=== PATIENT | female | born 1945 | race Caucasian/White ===

== ENCOUNTER 2021-10-24 16:40 | Outpatient (CLI) | payer MEDICARE, SELFPAY ==
[2021-10-24 19:44] LABS: Albumin* 4.6 g/dL (3.3-5.0)
[2021-10-24 19:45] LABS: Chloride* 104 mmol/L (96-114); Potassium* 4.4 mmol/L (3.6-5.1); Sodium* 139 mmol/L (135-149)
[2021-10-24 19:47] LABS: Aspartate Amino Transferase* 35 U/L (12-35); Bilirubin Total* 0.2 mg/dL (0.1-1.5); Carbon Dioxide* 24 mmol/L (20-32); Creatinine* 0.7 mg/dL (0.5-1.5); Estimated Glomerular Filt Rate 91 ml/min; Total Protein* 7.4 g/dL (6.0-8.3)
[2021-10-24 19:48] LABS: Alanine Aminotransferase* 34 U/L (4-35); Alkaline Phosphatase* 73 U/L (40-150); Blood Urea Nitrogen* 28 mg/dL (7-30); Calcium* 9.9 mg/dL (8.4-10.6); Glucose* 111 mg/dL (60-115)
== END 2021-10-24 16:41 | disposition home or self-care (01) ==
LOC: NFLDREF 16:41
PROVIDERS: PCP Internal Medicine; Visit Provider Internal Medicine
DX: M31.0 Hypersensitivity angiitis (principal)
CPT/HCPCS: 80053

== ENCOUNTER 2021-12-03 10:40 | Outpatient (CLI) | payer MEDICARE, SELFPAY ==
--- OUTSIDE RECORDS SUMMARY | 2021-12-04 15:09 | XMS_ITS | Clinical Summary ---
:1945 Author Organization [employer] [facility] [place] [address] Care Team Providers Name Role Phone Alanna Meadows MD Primary Care Provider Allergies Active Allergy Reactions Severity Noted Date Comments Erythromycin Hives 06/17/2006 Cephalexin Rash 06/17/2006 Penicillins Edema 06/17/2006 diffuse swellin g. Severe but not anaphylaxsis Medications Medication Sig Dispensed Refills Start Date End Date Status MULTIPLE VITAMIN TAB take 1 tablet by 0 06/17/2006 Active oral route once daily with food FIBERCON 625 MG TAB one daily 0 06/17/2006 Active VITAMIN D 400 UNIT CAP one daily 0 12/30/2007 Active ZOVIRAX 5 % OINTMENT apply to the 1 tube 0 05/05/2008 Active affected area(s) by topical route every 3 hours 6 times per day ACYCLOVIR 400 MG TAB TAKE ONE TABLET 15 Tab 1 12/18/2008 Active THREE TIMES DAILY FOR 5 DAYS loratadine 10 mg cap Take by mouth. 0 11/03/2019 Active levothyroxine Take 1.5 Tablets 30 Tablet 0 10/13/2021 Active (SYNTHROID) 50 mcg (75 mcg) by mouth tabletIndications: once daily. Elevated TSH Active Problems Problem Noted Date healthcare maintenance 12/30/2007 Overview: LMP menopause Last Pap 12/23/06 Result WNL Last Mammo 01/10/07 Last Colonoscopy 10/03/07 Last DEXA 2004 - ordered 2007 Last Td 12/23/06 Irritable bowel syndrome 06/17/2006 Encounters Date Type Specialty Care Team Description 10/15/2021 Telephone Samantha Campbell PA Lab 10/13/2021 Office Visit Raquel Rodriguez NP UTI 10/13/2021 Travel from Last 3 Months Immunizations Name Administration Dates Next Due Hepatitis A (Adult) 07/09/1997 Hepatitis B (Adult) 01/14/1998, 05/03/1997, 03/31/1997 Influenza, IIV3 (Age >=3 years) 12/16/2007, 12/23/2006 Pneumococcal Poly,23-Valent (Pneumovax) 05/28/2002, 07/09/18 98 Tdap 12/23/2006 Zoster (Zostavax-ZVL, live) 04/16/2007 Family History Medical History Relation Name Comments Heart Disease Father Hyperlipidemia Father Hypertension Father Allergies Mother Asthma Mother Heart Disease Mother stent Hyperlipidemia Mother Other Mother Kidney disease Cancer-breast Paternal Aunt Relation Name Status Comments Father Pulmonary Fibros is Mother Paternal Aunt Social History Tobacco Use Types Packs/Day Years Used Date Never Smoker Smokeless Tobacco: Never Used Alcohol Use Standard Drinks/Week Comments Yes 8.3 (1 standard drink = 0.6 oz pure alco hol) wine but not daily Alcohol Habits Answer Date Recorded How often do you have a drink containing alcohol? Not asked How many drinks containing alcohol do you have on a Not aske d typical day when you are drinking? How often do you have six or more drinks on one Not asked occasion? Comment: wine but not daily 12/30/2007 Sex Assigned at Date Recorded Not on file Obstetrics History Para Term AB IAB SAB Ectopic Multiple Living Live Births 6 5 5 0 1 0 1 0 0 5 Date Outcome GA Total Labor/2nd/3rd Weight Sex Delivery Anes PTL Rohini A 1 A5 Name Clin Labor SAB Term Term Term Term Term Last Filed Vital Signs Vital Sign Reading Time Taken Comments Blood Pressure 162/88 10/13/2021 12:37 PM CDT Pulse 88 10/13/2021 12:37 PM CDT Temperature 36.5 ??C (97.7 ??F) 10/13/2021 12:37 PM CDT Respiratory Rate 16 10/13/2021 12:37 PM CDT Oxygen Saturation 99% 10/13/2021 12:37 PM CDT Inhaled Oxygen Concentration - - Weight 66.2 kg (146 lb) 10/13/2021 12:37 PM CDT Height 163.8 cm (5' 4.5) 12/30/2007 9:22 AM CDT Body Mass Index - - Plan of Treatment Health Maintenance Due Date Last Done Comments Depression screening for age 12+ 1959 BMI (ht and wt on same day) for 1965 age 18+ Hepatitis C screening for age 0204/06/1965 18-79 Pneumococcal series for age 65+ (2 05/29/2003 05/28/2002, 0 07/09/1997 - PCV) Zoster (shingles) series for age 0406/11/2007 04/16/2007 50+ (2 of 3) Mammogram for age 45-75 01/19/2009 01/20/2008, 01/10/2007 DEXA/DXA scan for age 65+ 2012 01/20/2008 Medicare Wellness for age 65+ 2012 Lipids for age 45-75 04/23/2013 04/23/2008, 12/30/2007, 08/27/2005 Tetanus booster 12/23/2016 12/23/2006 Colonoscopy through age 75 10/02/2017 10/03/2007 Influenza for age 65+ 11/02/2021 12/16/2007, 12/23/2006 Tdap Completed 12/23/2006 COVID-19 vaccine series Completed 06/06/2021, 12/15/2020, 05/26/2020, Additional history exists Procedures Procedure Name Priority Date/Time Associated Comments Diagnosis URINE CULTURE Add On 10/13/2021 12:28 Dysuria Results fo r this PM CDT procedure are i n the results section. URINALYSIS STAT 10/13/2021 12:28 Dysuria Results for this MICROSCOPIC PM CDT procedure are i n the results section. UA W/ SEDIMENT EXAM STAT 10/13/2021 12:28 Dysuria Resu lts for this REFLEXED PER CRITERIA PM CDT proced ure are in the results section. from Last 3 Months Results (ABNORMAL) URINALYSIS MICROSCOPIC (10/13/2021 12:28 PM CDT) [facility] gist Method Time Signature RBC None Seen 0-2, None 10/13/2021 [place] Seen /HPF 1:04 PM [facility] WBC 11-25 (A) 0-2, 3-5, 10/13/2021 [place] None Seen 1:04 PM [facility] /HPF LABORATORY BACTERIA Few None 10/13/2021 [place] Seen, 1:04 PM [facility] Rare, Few LABORATORY Bacteria/ HPF EPITHELIAL Few None 10/13/2021 [place] Seen, Few 1:04 PM T [facility] Epi/HPF LABORATORY Mucus Present 10/13[facility]2021 [facility]:04 PM T [facility] WHITE CELL Present (A) (none) 10/13/2021 [place] 1:04 PM T [facility] Specimen Anatomical Collection Method Collection Time Receive d Time (Source) Location / / Volume Laterality Urine URINE SPECIMEN / Non-Blood / 10/13/2021 12:28 022 Unknown Unknown PM CDT 12:44 PM CDT Raquel Rodriguez NP URINE Performing Organization Address City/State/ZIP Code Phon e Number [facility] [address] [place] [address] (ABNORMAL) URINE CULTURE (10/13/2021 12:28 PM CDT) [facility] Method Time Signature CULTURE RESULT (A) 10/15/2021 [facility] 6:35 AM CDT LABORATORY-[facility] TRAL LABORATORY CULTURE 50,000-100,000 10/15/2021 [facility] CFU/mL 6:35 AM CDT LABORATORY-[facility] Escherichia coli TRAL LABORATORY CULTURE <10,000 CFU/mL 10/15/2021 [facility] Multiple 6:35 AM CDT LABORATORY-[facility] organisms TRAL probable LABORATORY contaminants Specimen Anatomical Collection Method Collection Time Receive d Time (Source) Location / / Volume Laterality Urine URINE SPECIMEN / Non-Blood / 10/13/2021 12:28 022 Unknown Unknown PM CDT 12:44 PM CDT Organism Antibiotic Method Susceptibility Escherichia coli TRIMETHOPRIM/SULF <=1/19: S Escherichia coli AMPICILLIN 8: S Escherichia coli CEFAZOLIN-UC <=4: S Comment: Cefazolin-UC interp retations are for therapy of uncomplicated UTIs due to E.coli, K.pneumoniae, or P.m irablis. Escherichia coli GENTAMICIN <=1: S Escherichia coli CEFTRIAXONE <=1: S Escherichia coli CEFTAZIDIME <=1: S Escherichia coli LEVOFLOXACIN <=0.12: S Escherichia coli CIPROFLOXACIN <=0.25: S Escherichia coli PIPERACILLIN/TAZO <=4: S Escherichia coli AMPICILLIN/SULBACTAM 4: S Escherichia coli CEFEPIME <=1: S Escherichia coli TOBRAMYCIN <=1: S Escherichia coli MEROPENEM <=0.25: S Escherichia coli NITROFURANTOIN <=16: S Raquel Rodriguez NP MICROBIOLOGY Performing Organization Address City/State/ZIP Code Phon e Number [facility] [address] [place] [address] LABORATORY-[facility]EN[facility] 2000 LABORATORY (ABNORMAL) UA W/ SEDIMENT EXAM REFLEXED PER CRITERIA (UA w/ reflex micro if positive) [19373.2] (10/13/2021 12:28 PM CDT) [facility] Method Time Signature COLOR Yellow Yellow Color 10/13/2021 [place] 12:59 PM MEDICAL CDT CENTER LAB[facility] CLARITY Clear Clear 10/13/2021 [place] Clarity 12:59 PM MEDICAL CDT CENTER LAB[facility]ORY SPECIFIC <=1.005 (A) 1.010, 10/13/2021 [place] GRAVITY,URINE 1.015, 12:59 PM MEDICAL 1.020, 1.025 CDT CENTER LABORATORY PH,URINE 5.5 6.0, 7.0, 10/13/2021 [place] 8.0, 5.5, 12:59 PM MEDICAL 6.5, 7.5, CDT CENTER 8.5 LABORATORY UROBILINOGEN, Normal Normal EU/dl 10/13/2021 [place] QUALITATIVE 12:59 PM [facility] PROTEIN, Negative Negative 10/13/2021 [place] URINE mg/dL 12:59 PM [facility] GLUCOSE, Negative Negative 10/13/2021 [place] URINE mg/dL 12:59 PM [facility] KETONES,URINE Negative Negative 10/13/2021 [place] mg/dL 12:59 PM MEDICAL CDT CENTER LABOR[facility]ORY BILIRUBIN,URI Negative Negative 10/13/2021 [place] NE 12:59 PM MEDICAL CDT CENTER LAB[facility] OCCULT Negative Negative 10/13/2021 [place] BLOOD,URINE 12:59 PM [facility]T [facility] LAB[facility] NITRITE Negative Negative 10/13/2021 [place] 12:59 PM MEDICAL [facility]T CENTER LABOR[facility]ORY LEUKOCYTE Moderate (A) Negative 10/13/2021 [place] ESTERASE 12:59 PM [facility] CDT CENTER LABORATORY Specimen Anatomical Collection Method Collection Time Receive d Time (Source) Location / / Volume Laterality Urine URINE SPECIMEN / Non-Blood / 10/13/2021 12:28 022 Unknown Unknown PM CDT 12:44 PM CDT Raquel Rodriguez NP URINE Performing Organization Address City/State/ZIP Code Phon e Number [facility] [address] [place] [address] from Last 3 Months Insurance Payer Benefit Plan / Subscriber ID Effective Dates Phone Addre ss Type Group [employer] MEDICARE [id number] 2019-Present [address] [place] [address] Care Teams 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
== END 2021-12-03 10:41 | disposition home or self-care (01) ==
LOC: NFLDUCREF 12-04 15:07
PROVIDERS: PCP Internal Medicine; Visit Provider Student in an Organized Health Care Education/Training Program
DX: R30.0 Dysuria (principal)
CPT/HCPCS: 87086

== ENCOUNTER 2022-05-10 08:30 | Outpatient (CLI) | payer MEDICARE, SELFPAY | END 2022-05-10 08:31 | disposition home or self-care (01) | LOC: NFLDREF 05-11 15:25 | PROVIDERS: PCP Internal Medicine; Referring Provider Internal Medicine; Visit Provider Internal Medicine | DX: Z00.00 Encounter for general adult medical examination without abnormal findings (principal); M85.80 Other specified disorders of bone density and structure, unspecified site; E78.5 Hyperlipidemia, unspecified; E03.8 Other specified hypothyroidism; N95.2 Postmenopausal atrophic vaginitis | CPT/HCPCS: 80061; 82306; 84439; 84443 ==

== ENCOUNTER 2022-08-15 08:30 | Outpatient (CLI) | payer MEDICARE, SELFPAY | END 2022-08-15 08:31 | disposition home or self-care (01) | LOC: NFLDREF 08-16 00:52 | PROVIDERS: PCP Internal Medicine; Referring Provider Internal Medicine; Visit Provider Internal Medicine | DX: E78.5 Hyperlipidemia, unspecified (principal) | CPT/HCPCS: 80061 ==

== ENCOUNTER 2022-10-24 13:54 | Outpatient (CLI) | payer MEDICARE, SELFPAY ==
--- NOTE | 2022-10-24 14:00 | CRLHL7_ITS ---
For Patients: As a result of the Century Cures Act, medical imaging exams and procedure reports are released immediately into your electronic medical record. You may view this report before your referring provider. If you have questions, please contact your health care provider. DXA BONE MINERAL DENSITY STUDY Reason for exam: Osteopenia. Current height (in): 64. Weight (lb): 146 Menopause age: 47. Ethnicity: White. 1. Have you had a previous hip or vertebral fracture? No. 2. Have you had any fractures during your adult life which did not result from significant trauma (e.g., auto accident)? No. 3. Did either of your parents have a hip fracture? No. 4. Do you smoke? No. 5. Have you ever taken Glucocorticoids? No. 6. Do you have rheumatoid arthritis? No. 7. Do you have secondary osteoporosis? No. 8. Do you drink 3 or more alcoholic drinks per day? No. 9. Are you being treated for osteoporosis? No. 10. Have you ever taken any of the following medications: Actonel, Evista, Fosamax, Miacalcin, Reclast, Boniva, Forteo, HRT (i.e. estrogen/hormone therapy), Protelos, Prolia, Vitamin D, Calcium, other ??? please specify. ANSWER: Yes, vitamin D. 11. Do you have any of the following medical conditions: Anorexia or bulimia, asthma or emphysema, end stage renal disease, hyperparathyroidism, any seizure disorders, cancer, inflammatory bowel diseases, hysterectomy, other ??? please specify. ANSWER: No. 12. What was your maximum height (inches)? 64. 13. Do you perform weight bearing exercise regularly? Yes. 14. Do you regularly consume dairy products? Yes.. 15. Do you drink caffeinated beverages? Yes. 16. At what age did your period start? 16. 17. Are you premenopausal? No. 18. How many full term pregnancies have you had? 5. 19. Have you ever missed your period for more than 6 months in a row (not including or menopause)? No. TECHNIQUE: Bone mineral density study was performed using the [employer]. FINDINGS: The results of the study expressed as bone mineral density (BMD) are as follows: Lumbar spine L1 to L4: BMD: 0.909 g/cm2. T-score: -1.3. Z-score: 1.2. Neck Left: BMD: 0.568 g/cm2. T-score: -2.5. Z-score: -0.4. Right: BMD: 0.567 g/cm2. T-score: -2.5. Z-score: -0.4. Total Left: BMD: 0.733 g/cm2. T-score: -1.7. Z-score: 0.1. Right: BMD: 0.740 g/cm2. T-score: -1.7. Z-score: 0.2. IMPRESSION: Osteoporosis. *Comparison exams done prior to 08/2019 were performed on different unit, [facility]. COMPARISON: Compared with scan of 06/29/2020, the bone mineral density has decreased by 1.1 percent at the spine and decreased by 1.7 percent at the hip. Compared with scan of 07/11/2015, the bone mineral density has decreased by 3.5 percent at the spine and decreased by 1.6 percent at the hip. Yogesh Goetz M.D. Diagnostic/Nuclear Medicine Radiologist [email or web address] ERIKA/Dictated by: Yogesh Goetz MD @ 10/25/2022 8:32:00 AM (Electronically Signed)
== END 2022-10-24 13:55 | disposition home or self-care (01) ==
LOC: RAD 13:56
PROVIDERS: PCP Internal Medicine; Visit Provider Internal Medicine
DX: M85.88 Other specified disorders of bone density and structure, other site (principal); M81.0 Age-related osteoporosis without current pathological fracture
CPT/HCPCS: 77080

== ENCOUNTER 2022-11-06 09:58 | Outpatient (CLI) | payer MEDICARE, SELFPAY ==
--- NOTE | 2022-11-06 10:15 | CRLHL7_ITS ---
For Patients: As a result of the Century Cures Act, medical imaging exams and procedure reports are released immediately into your electronic medical record. You may view this report before your referring provider. If you have questions, please contact your health care provider. BILATERAL SCREENING MAMMOGRAM WITH COMPUTER-AIDED DETECTION AND TOMOSYNTHESIS TECHNIQUE: CC and MLO views were obtained. These mammographic images have been obtained using full-field digital technique. These mammographic images were interpreted with the benefit of computer-aided detection. Breast Tomosynthesis was used in this interpretation. COMPARISON FILM: 10/24/20, 03/17/18, 07/11/15. FINDINGS: There are scattered areas of fibroglandular density IMPRESSION: There is no radiographic evidence for malignancy. ASSESSMENT: BI-RADS Category 1: Negative RECOMMENDATION: Routine screening mammogram in 1 year. A lay language report of this examination will be provided to the patient. Ajay Avery M.D. Diagnostic Radiologist [email or web address] ERIKA/Dictated by: Ajay Avery MD @ 11/06/2022 10:57:00 AM (Electronically Signed)
== END 2022-11-06 09:59 | disposition home or self-care (01) ==
LOC: MAMMO 09:58
PROVIDERS: PCP Internal Medicine; Visit Provider Internal Medicine
DX: Z12.31 Encounter for screening mammogram for malignant neoplasm of breast (principal)
CPT/HCPCS: 77063; 77067

== ENCOUNTER 2022-11-18 08:51 | Outpatient (CLI) | payer MEDICARE, SELFPAY | END 2022-11-18 08:52 | disposition home or self-care (01) | LOC: NFLDREF 11-21 11:14 | PROVIDERS: PCP Internal Medicine; Referring Provider Internal Medicine; Visit Provider Registered Nurse | DX: R30.0 Dysuria (principal); N39.0 Urinary tract infection, site not specified; N30.00 Acute cystitis without hematuria | CPT/HCPCS: 87086 ==

== ENCOUNTER 2022-11-21 08:36 | Outpatient (CLI) | payer MEDICARE, SELFPAY | END 2022-11-21 08:37 | disposition home or self-care (01) | LOC: NFLDREF 11-23 09:03 | PROVIDERS: PCP Internal Medicine; Referring Provider Internal Medicine; Visit Provider Internal Medicine | DX: E78.5 Hyperlipidemia, unspecified (principal) | CPT/HCPCS: 80061 ==

== ENCOUNTER 2023-05-30 07:50 | Outpatient (CLI) | payer MEDICARE, SELFPAY | END 2023-05-30 07:51 | disposition home or self-care (01) | LOC: NFLDREF 05-31 11:26 | PROVIDERS: PCP Internal Medicine; Referring Provider Internal Medicine; Visit Provider Internal Medicine | DX: M81.0 Age-related osteoporosis without current pathological fracture (principal); E03.8 Other specified hypothyroidism; E78.5 Hyperlipidemia, unspecified; Z13.1 Encounter for screening for diabetes mellitus | CPT/HCPCS: 80061; 82306; 82947; 84443 ==

== ENCOUNTER 2024-06-04 07:55 | Outpatient (CLI) | payer MEDICARE, SELFPAY | END 2024-06-04 07:56 | disposition home or self-care (01) | LOC: NFLDREF 06-09 05:04 | PROVIDERS: PCP Internal Medicine; Referring Provider Internal Medicine; Visit Provider Internal Medicine | DX: E78.5 Hyperlipidemia, unspecified (principal); M81.0 Age-related osteoporosis without current pathological fracture; E03.8 Other specified hypothyroidism; Z13.1 Encounter for screening for diabetes mellitus | CPT/HCPCS: 80061; 82306; 82947; 84443 ==

== ENCOUNTER 2024-11-30 09:54 | Outpatient (CLI) | payer MEDICARE, SELFPAY ==
--- NOTE | 2024-11-30 10:15 | CRLHL7_ITS ---
For Patients: As a result of the Century Cures Act, medical imaging exams and procedure reports are released immediately into your electronic medical record. You may view this report before your referring provider. If you have questions, please contact your health care provider. INDICATION: BILATERAL SCREENING MAMMOGRAM, ASYMPTOMATIC 79 Y/O FEMALE COMPARISON: 11/06/2022, 10/24/2020, 03/17/2018 TECHNIQUE: Digital mammogram in CC and MLO projections including computer-aided detection (CAD) and tomosynthesis. BREAST COMPOSITION: There are scattered areas of fibroglandular density. FINDINGS: No suspicious findings. ASSESSMENT: BI-RADS 1 Negative RECOMMENDATION: Annual screening mammogram. A lay language report of this examination will be provided to the patient. Dictated by: Ajay Avery MD @ 11/30/2024 12:17:27 (Electronically Signed)
== END 2024-11-30 09:55 | disposition home or self-care (01) ==
LOC: MAMMO 09:54
PROVIDERS: PCP Internal Medicine; Visit Provider Internal Medicine
DX: Z12.31 Encounter for screening mammogram for malignant neoplasm of breast (principal)
CPT/HCPCS: 77063; 77067